=== PATIENT | female | born 2000 | race African-American/Black ===

== ENCOUNTER 2018-03-03 01:13 | Observation (INO) ==
[2018-03-03] MEDS ORDERED: LIDOCAINE 1%/EPI INJ 20 ML VIAL INFILTRAT STA (01:50)
[2018-03-03 02:46] LABS: Basophils % 0.5 % (0.0-0.8); Eosinophils # 0.3 10*3/uL (0.0-0.87); Eosinophils % 3.6 % (0.00-10.9); Hematocrit 28.9 VOL% (35.7-47.0); Hemoglobin 9.6 GM/DL (12.0-16.0); Immature Granulocytes % 0.5 %; Immature Granulocytes Absolute 0.04 #; Lymphocytes # 2.3 10*3/uL (1.4-4.0); Lymphocytes % 27.4 % (21.3-54.2); Mean Corpuscular HGB Conc 33.2 GM/DL (32-36); Mean Corpuscular Hemoglobin 21 PG (27-34); Mean Corpuscular Volume 63.1 FL (87-102); Monocytes # 0.7 10*3/uL (0.11-0.8); Neutrophils # 5.1 10*3/uL (1.4-7.4); Platelet Count 241 T/CUMM (130-400); Red Blood Count 4.58 MC/CUMM (3.8-5.5); Red Cell Distribution Width 18.8 % (9.3-17.3); White Blood Count 8.4 T/CUMM (4-12)
[2018-03-03 03:14] LABS: Albumin 3.2 G/DL (3.4-5.0); Bilirubin,Total 0.5 MG/DL (0.2-1.0); Calcium 8.8 MG/DL (8.5-10.1); Osmolality,Calculated 273.5 MOS/KG (273-304); Potassium 3.7 MMOL/L (3.5-5.1); Total Protein 7.7 G/DL (6.4-8.3)
[2018-03-03] MEDS ORDERED: HYDROmorphone 2 MG/1 ML VIAL IV PRN (06:59)
[2018-03-03] MEDS ORDERED: ACETAMINOPHEN 325 MG TABLET PO PRN (06:59)
[2018-03-03] MEDS ORDERED: ONDANSETRON 4 MG/2 ML VIAL IV PRN (06:59)
[2018-03-03] MEDS: LACTATED RINGERS 1,000 ML IV SCH ×2 (08:06→14:33)
[2018-03-03] MEDS: PANTOPRAZOLE 40 MG TABLET PO SCH (08:08)
[2018-03-03] MEDS: CLINDAMYCIN INJ 900 MG in PREMIX 1 EACH IV SCH ×2 (09:17→16:27)
[2018-03-03] MEDS ORDERED: PROPOFOL 200 MG/20 ML VIAL IV ONE (13:15)
[2018-03-03] MEDS ORDERED: SEVOFLURANE 1 UNIT/15 MINUTE INH ONE (13:16)
[2018-03-03] MEDS ORDERED: MIDAZOLAM 2 MG/2 ML VIAL ONE (13:16)
[2018-03-03] MEDS ORDERED: fentaNYL 100 MCG/2 ML VIAL ONE (13:17)
[2018-03-03] MEDS ORDERED: ONDANSETRON 4 MG/2 ML VIAL ONE (13:17)
[2018-03-04] MEDS: LACTATED RINGERS 1,000 ML IV SCH (00:31)
[2018-03-04] MEDS: CLINDAMYCIN INJ 900 MG in PREMIX 1 EACH IV SCH (00:31)
[2018-03-04 07:46] VITALS: BP 130/75
[2018-03-04] MEDS: PANTOPRAZOLE 40 MG TABLET PO SCH (08:35)
[2018-03-04] MEDS ORDERED: ENOXAPARIN 40 MG/0.4 ML SYRINGE SUBCUT SCH (09:00)
[2018-03-04] MEDS ORDERED: SULFAMETHOX/TRIMETHOPRIM 800-160 MG TABLET PO SCH (09:00)
== END 2018-03-04 11:10 | disposition home or self-care (01) ==
LOC: N.ED 01:13 → N.EDINP 01:13 → N.2E 07:34
PROVIDERS: ADMIT Surgery; ATTEND Surgery

== ENCOUNTER 2019-04-12 15:10 | Inpatient (IN) ==
[2019-04-12] MEDS ORDERED: ONDANSETRON 4 MG/2 ML VIAL IV PRN (15:27)
[2019-04-12] MEDS ORDERED: MEPERIDINE 50 MG/1 ML VIAL IV PRN (15:27)
[2019-04-12] MEDS ORDERED: DINOPROSTONE VAG GEL 10 MG SYRINGE VAG ONE (15:31)
[2019-04-12] MEDS: LACTATED RINGERS 1,000 ML IV SCH (16:01)
[2019-04-12 16:26] LABS: Basophils % 0.4 % (0.0-0.8); Eosinophils # 0.1 10*3/uL (0.0-0.87); Eosinophils % 0.8 % (0.00-10.9); Hematocrit 26.1 VOL% (35.7-47.0); Hemoglobin 8.4 GM/DL (12.0-16.0); Immature Granulocytes % 0.8 %; Immature Granulocytes Absolute 0.07 #; Lymphocytes # 1.2 10*3/uL (1.4-4.0); Lymphocytes % 13.2 % (21.3-54.2); Mean Corpuscular HGB Conc 32.2 GM/DL (32-36); Mean Corpuscular Volume 80.6 FL (87-102); Mean Platelet Volume 12.6 FL (9.6-12.0); NRBC # 0.04 10*3/uL; Neutrophils % 78.8 % (38.7-73.9); Platelet Count 118 T/CUMM (130-400); Red Blood Count 3.24 MC/CUMM (3.8-5.5); Red Cell Distribution Width 16.1 % (9.3-17.3); White Blood Count 9.3 T/CUMM (4-12)
[2019-04-12 16:29] LABS: Albumin 2.9 G/DL (3.4-5.0); Bilirubin,Total 1.2 MG/DL (0.2-1.0); Osmolality,Calculated 269.7 MOS/KG (273-304); Total Protein 6.9 G/DL (6.4-8.3); Uric Acid 4.1 MG/DL (2.6-6.0)
[2019-04-12] MEDS ORDERED: hydrALAZINE 20 MG/1 ML VIAL IV ONE (18:10)
[2019-04-12] MEDS ORDERED: PROMETHAZINE 25 MG/1 ML VIAL IM ONE (18:18)
[2019-04-12] MEDS ORDERED: MEPERIDINE 25 MG/1 ML VIAL IM ONE (18:18)
[2019-04-13] MEDS: LACTATED RINGERS 1,000 ML IV SCH ×2 (00:30→11:31)
[2019-04-13] MEDS: OXYTOCIN/LR 20 UNIT/1,000 ML BAG IV SCH ×2 (02:05→17:50)
[2019-04-13] MEDS: BUTORPHANOL 2 MG/ML VIAL IV PRN ×2 (03:42→07:03)
[2019-04-13] MEDS ORDERED: ePHEDrine 50 MG/ML AMP IV PRN (08:43)
[2019-04-13] MEDS ORDERED: diphenhydrAMINE 50 MG/1 ML VIAL IV PRN ×2 (08:43)
[2019-04-13] MEDS ORDERED: CITRIC ACID/SODIUM CITRATE 30 ML UDCUP PO ONE (08:43)
[2019-04-13] MEDS ORDERED: FAMOTIDINE 20 MG/2 ML VIAL IV ONE (08:43)
[2019-04-13] MEDS ORDERED: PROMETHAZINE 25 MG/1 ML VIAL IM ONE (08:43)
[2019-04-13] MEDS ORDERED: LACTATED RINGERS 1,000 ML IV ONE (08:43)
[2019-04-13] MEDS ORDERED: hydrOXYzine HCL 25 MG/1 ML VIAL IM PRN (08:43)
[2019-04-13] MEDS ORDERED: NALOXONE 0.4 MG/ML VIAL IV PRN (08:43)
[2019-04-13] MEDS ORDERED: fentaNYL 2 MCG/ROPIV 0.2% EPID 100 ML EPIDURAL ONE (08:52)
[2019-04-13] MEDS ORDERED: fentaNYL 2 MCG/ROPIV 0.2% EPID 100 ML EPIDURAL SCH (09:00)
[2019-04-13 10:52] LABS: Amorphous Crystals,Urine Occasional /HPF (Few); Apearance,Urine CLEAR (Clear); Bacteria,Urine Occasional /HPF (Few); Bilirubin,Urine Negative (Negative); Blood, Urine Negative (Negative); Glucose,Urine (UA) Negative (Negative); Ketones,Urine Negative (Negative); Mucus,Urine Few /LPF (Occasional); Nitrite,Urine Negative (Negative); Protein,Urine Negative; RBC,Urine 1 /HPF (0-4); Squamous Epithelial Cell,Urine Occasional /HPF (0-10); Urine Color Amber (Yellow); Urine Specific Gravity 1.008 (1.001-1.035); WBC,Urine 22 /HPF (0-6)
[2019-04-13] MEDS ORDERED: miSOPROStol 200 MCG TABLET ONE (15:40)
[2019-04-13] MEDS ORDERED: TRANEXAMIC ACID 1,000 MG/10 ML VIAL ONE (15:40)
[2019-04-13] MEDS ORDERED: CARBOPROST TROMETHAMINE 250 MCG/ML AMP IM ONE (15:41)
[2019-04-13] MEDS ORDERED: METHYLERGONOVINE 0.2 MG/1 ML AMP ONE (15:41)
[2019-04-13 17:02] LABS: Cord Venous Blood HCO3 23.3 MMOL/L; Cord Venous Blood PCO2 41.6 MMHG; Cord Venous Blood PO2 28.9
[2019-04-13] MEDS ORDERED: IBUPROFEN 800 MG TABLET PO ONE (19:40)
[2019-04-13] MEDS ORDERED: MEASLES/MUMPS/RUBELLA VACCINE 0.5 ML VIAL SUBCUT ONE (21:05)
[2019-04-13] MEDS ORDERED: BISACODYL 10 MG SUPP RECTAL PRN (21:05)
[2019-04-13] MEDS ORDERED: DIPH/TET/ACEL PERT BOOSTER VACCINE 0.5 ML VIAL IM ONE (21:05)
[2019-04-13] MEDS ORDERED: ACETAMINOPHEN 325 MG TABLET PO PRN (21:05)
[2019-04-13] MEDS ORDERED: RHO(D) IMMUNE GLOBULIN 300 MCG SYRINGE IM ONE (21:05)
[2019-04-13] MEDS ORDERED: HYDROCORTISONE 2.5% RECTAL CREAM 30 GM TUBE TOP PRN (21:05)
[2019-04-13] MEDS ORDERED: BENZOCAINE 20%/MENTHOL 0.5% SPRAY 56 GM CAN TOP PRN (21:05)
[2019-04-13] MEDS ORDERED: oxyCODONE/ACETAMINOPHEN 5-325 MG TABLET PO PRN (21:05)
[2019-04-13] MEDS ORDERED: LANOLIN 50% CREAM 0.3 OZ TUBE TOP PRN (21:05)
[2019-04-13] MEDS ORDERED: WITCH HAZEL PADS 100/JAR TOP PRN (21:05)
[2019-04-13 21:28] LABS: Hematocrit 23.9 VOL% (35.7-47.0)
[2019-04-14] MEDS: DOCUSATE SODIUM 100 MG CAPSULE PO SCH ×3 (00:58→21:21)
[2019-04-14 06:52] LABS: Basophils % 0.2 % (0.0-0.8); Eosinophils # 0.1 10*3/uL (0.0-0.87); Eosinophils % 0.6 % (0.00-10.9); Hematocrit 21.5 VOL% (35.7-47.0); Hemoglobin 7.2 GM/DL (12.0-16.0); Immature Granulocytes Absolute 0.09 #; Lymphocytes # 1.4 10*3/uL (1.4-4.0); Lymphocytes % 14.8 % (21.3-54.2); Mean Corpuscular HGB Conc 33.5 GM/DL (32-36); Mean Platelet Volume 12.5 FL (9.6-12.0); Monocytes % 6.2 % (1.7-12.7); Neutrophils % 77.2 % (38.7-73.9); Platelet Count 100 T/CUMM (130-400); Red Blood Count 2.72 MC/CUMM (3.8-5.5); Red Cell Distribution Width 15.9 % (9.3-17.3); White Blood Count 9.3 T/CUMM (4-12)
[2019-04-14 07:19] LABS: Hypochromasia 1+; Macrocytosis Slight; Ovalocytes Slight; Platelet Estimate Decreased; Polychromasia Slight
[2019-04-14] MEDS ORDERED: SODIUM CHLORIDE 0.9% 1,000 ML IV PRN (08:46)
[2019-04-14] MEDS ORDERED: FUROSEMIDE 20 MG/2 ML VIAL IV ONE (09:30)
[2019-04-14] MEDS: oxyCODONE/ACETAMINOPHEN 5-325 MG TABLET PO PRN ×2 (10:13→11:28)
[2019-04-14] MEDS: IBUPROFEN 800 MG TABLET PO PRN ×2 (11:28→21:21)
[2019-04-14 18:25] LABS: Hematocrit 28.4 VOL% (35.7-47.0); Hemoglobin 9.7 GM/DL (12.0-16.0)
[2019-04-14] MEDS ORDERED: RHO(D) IMMUNE GLOBULIN 300 MCG SYRINGE IM ONE (21:30)
[2019-04-15 11:36] VITALS: BP 122/80
== END 2019-04-15 15:00 | disposition home or self-care (01) | DRG 560 ==
LOC: N.LD 15:10 → N.OB 04-13 20:50
PROVIDERS: ADMIT Obstetrics & Gynecology; ATTEND Obstetrics & Gynecology

== ENCOUNTER 2022-06-24 19:42 | Inpatient (IN) ==
[2022-06-24] MEDS ORDERED: miSOPROStoL 200 MCG TABLET RECTAL PRN (19:51)
[2022-06-24] MEDS ORDERED: CARBOPROST TROMETHAMINE 250 MCG/ML AMP IM PRN (19:51)
[2022-06-24] MEDS ORDERED: METHYLERGONOVINE 0.2 MG/1 ML AMP IM PRN (19:51)
[2022-06-24] MEDS ORDERED: OXYTOCIN/LR 20 UNIT/1,000 ML BAG IV ONE (19:51)
[2022-06-24] MEDS ORDERED: TRANEXAMIC ACID 1,000 MG in SODIUM CHLORIDE 0.9% 100 ML IV PRN (19:51)
[2022-06-24] MEDS ORDERED: ONDANSETRON 4 MG/2 ML VIAL IV PRN (19:51)
[2022-06-24 20:34] LABS: Basophils % 0.2 % (0.0-0.8); Eosinophils # 0.1 10*3/uL (0.0-0.87); Eosinophils % 1.3 % (0.00-10.9); Hematocrit 26.9 VOL% (35.7-47.0); Hemoglobin 9.1 GM/DL (12.0-16.0); Immature Granulocytes % 0.4 %; Immature Granulocytes Absolute 0.03 #; Lymphocytes # 1.6 10*3/uL (1.4-4.0); Lymphocytes % 19.9 % (21.3-54.2); Mean Corpuscular HGB Conc 33.8 GM/DL (32-36); Mean Corpuscular Volume 73.9 FL (87-102); Mean Platelet Volume 11.3 FL (9.6-12.0); Monocytes # 0.4 10*3/uL (0.11-0.8); Monocytes % 5.3 % (1.7-12.7); Neutrophils % 72.9 % (38.7-73.9); Platelet Count 178 T/CUMM (130-400); Red Blood Count 3.64 MC/CUMM (3.8-5.5); Red Cell Distribution Width 15.8 % (9.3-17.3); White Blood Count 8.3 T/CUMM (4-12)
[2022-06-24 20:49] LABS: Albumin 2.8 G/DL (3.4-5.0); Bilirubin,Total 0.6 MG/DL (0.20-1.00); Calcium 8.9 MG/DL (8.5-10.1); Potassium 3.8 MMOL/L (3.5-5.1); Total Protein 6.9 G/DL (6.4-8.2)
[2022-06-24] MEDS ORDERED: DINOPROSTONE 10 MG VAG.INSERT VAG ONE (21:30)
[2022-06-24 21:48] LABS: Rubella Antibody IgG Result Reactive (NonReactive)
[2022-06-24] MEDS ORDERED: BUTORPHANOL 2 MG/ML VIAL IV PRN (23:02)
[2022-06-24] MEDS ORDERED: MEPERIDINE 25 MG/1 ML VIAL IV PRN (23:06)
[2022-06-25] MEDS ORDERED: BUTORPHANOL 1 MG/ML VIAL IV PRN (04:10)
[2022-06-25] MEDS: LACTATED RINGERS 1,000 ML IV SCH ×2 (04:18→10:13)
[2022-06-25] MEDS ORDERED: OXYTOCIN/LR 20 UNIT/1,000 ML BAG IV SCH (08:00)
[2022-06-25 11:48] LABS: Mucus,Urine Few /LPF (Occasional); RBC,Urine 1 /HPF (0-4); Squamous Epithelial Cell,Urine Occasional /HPF (0-10)
[2022-06-25 11:50] LABS: Bilirubin,Urine Negative (Negative); Blood, Urine Negative (Negative); Glucose,Urine (UA) Negative (Negative); Ketones,Urine Negative (Negative); Nitrite,Urine Negative (Negative); Protein,Urine Negative (Negative); Urine Appearance Clear (Clear); Urine Color Yellow (Yellow)
[2022-06-25 12:15] LABS: Barbiturates Screen,Urine Negative (Negative); Benzodiazepines Screen,Urine Negative (Negative); Cannabinoid Screen,Urine Negative (Negative); Opiate Screen,Urine Negative (Negative); Phencyclidine Screen,Urine Negative (Negative)
[2022-06-25] MEDS ORDERED: FAMOTIDINE 20 MG/2 ML VIAL IV ONE (14:24)
[2022-06-25] MEDS ORDERED: CITRIC ACID/SODIUM CITRATE 30 ML UDCUP PO ONE (14:24)
[2022-06-25] MEDS ORDERED: ceFAZolin 3,000 MG in SYRINGE 1 EACH IV ONE (14:24)
[2022-06-25] MEDS ORDERED: OXYTOCIN/LR 30 UNIT/1,000 ML BAG IV ONE (14:28)
[2022-06-25] MEDS ORDERED: OXYTOCIN 10 UNIT/ML VIAL IM ONE (14:28)
[2022-06-25] MEDS ORDERED: buprenorphine HCL 0.3 MG/ML VIAL ONE (14:56)
[2022-06-25] MEDS ORDERED: ONDANSETRON 4 MG/2 ML VIAL ONE (14:59)
[2022-06-25] MEDS ORDERED: PHENYLEPHRINE 1 MG/10 ML SYRINGE IV ONE (14:59)
[2022-06-25 15:53] LABS: Cord Venous Blood HCO3 24.9 MMOL/L; Cord Venous Blood PO2 27.2
[2022-06-25 15:55] LABS: Glucose,Urine (UA) Negative (Negative); Protein,Urine Negative (Negative); Urine Appearance Clear (Clear); Urine Color Yellow (Yellow)
[2022-06-25 15:56] LABS: Bilirubin,Urine Negative (Negative); Blood, Urine Negative (Negative); Ketones,Urine Negative (Negative); Nitrite,Urine Negative (Negative)
[2022-06-25 16:00] LABS: Mucus,Urine Occasional /LPF (Occasional); RBC,Urine 1 /HPF (0-4); Squamous Epithelial Cell,Urine Occasional /HPF (0-10)
[2022-06-25] MEDS ORDERED: ACETAMINOPHEN 325 MG TABLET PO PRN (16:14)
[2022-06-25] MEDS ORDERED: OXYTOCIN/LR 20 UNIT/1,000 ML BAG IV ONE (16:14)
[2022-06-25] MEDS ORDERED: ONDANSETRON 4 MG/2 ML VIAL IV PRN (16:14)
[2022-06-25] MEDS ORDERED: SIMETHICONE CHEW 80 MG TABLET PO PRN (16:14)
[2022-06-25] MEDS ORDERED: MAGNESIUM HYDROXIDE SUSP 30 ML UDCUP PO PRN (16:14)
[2022-06-25] MEDS ORDERED: RHO(D) IMMUNE GLOBULIN 300 MCG SYRINGE IM ONE (16:14)
[2022-06-25] MEDS ORDERED: LACTATED RINGERS 1,000 ML IV SCH (16:30)
[2022-06-25] MEDS ORDERED: ACETAMINOPHEN 500 MG TABLET PO SCH (16:30)
[2022-06-25] MEDS: KETOROLAC 30 MG/1 ML VIAL IV SCH (18:03)
[2022-06-25 21:49] LABS: Hematocrit 25.9 VOL% (35.7-47.0); Hemoglobin 8.8 GM/DL (12.0-16.0)
[2022-06-25] MEDS ORDERED: diphenhydrAMINE 50 MG/1 ML VIAL IV PRN (22:43)
[2022-06-25] MEDS: ceFAZolin 2,000 MG/50 ML DUPLEX IV SCH (23:25)
[2022-06-26] MEDS: DOCUSATE SODIUM 100 MG CAPSULE PO SCH ×2 (00:35→09:30)
[2022-06-26] MEDS ORDERED: ACETAMINOPHEN 325 MG/10.15 ML UDCUP PO SCH (01:00)
[2022-06-26] MEDS: ACETAMINOPHEN 325 MG/10.15 ML UDCUP PO SCH ×3 (01:02→13:39)
[2022-06-26] MEDS: KETOROLAC 30 MG/1 ML VIAL IV SCH ×3 (01:09→11:35)
[2022-06-26] MEDS: ceFAZolin 2,000 MG/50 ML DUPLEX IV SCH (06:33)
[2022-06-26 07:23] LABS: Basophils % 0.4 % (0.0-0.8); Eosinophils # 0.1 10*3/uL (0.0-0.87); Eosinophils % 0.8 % (0.00-10.9); Hematocrit 24.1 VOL% (35.7-47.0); Hemoglobin 8.1 GM/DL (12.0-16.0); Immature Granulocytes % 0.6 %; Immature Granulocytes Absolute 0.05 #; Lymphocytes # 1.2 10*3/uL (1.4-4.0); Lymphocytes % 15.4 % (21.3-54.2); Mean Corpuscular HGB Conc 33.6 GM/DL (32-36); Mean Corpuscular Volume 72.8 FL (87-102); Mean Platelet Volume 11.4 FL (9.6-12.0); Monocytes # 0.5 10*3/uL (0.11-0.8); Monocytes % 5.6 % (1.7-12.7); Neutrophils % 77.2 % (38.7-73.9); Platelet Count 136 T/CUMM (130-400); Red Blood Count 3.31 MC/CUMM (3.8-5.5); Red Cell Distribution Width 15.8 % (9.3-17.3)
[2022-06-26] MEDS: DOCUSATE SODIUM 100 MG/10 ML UDCUP PO SCH ×2 (09:45→20:39)
[2022-06-26] MEDS: MULTIVITAMIN (PRENATAL) TABLET PO SCH (09:45)
[2022-06-26] MEDS: FERROUS SULFATE 325 MG TABLET PO SCH ×2 (09:45→20:40)
[2022-06-26] MEDS: IBUPROFEN 800 MG TABLET PO PRN (19:37)
[2022-06-27] MEDS: IBUPROFEN 800 MG TABLET PO PRN (05:50)
[2022-06-27] MEDS: DOCUSATE SODIUM 100 MG/10 ML UDCUP PO SCH (08:28)
[2022-06-27] MEDS: MULTIVITAMIN (PRENATAL) TABLET PO SCH (08:29)
[2022-06-27] MEDS: FERROUS SULFATE 325 MG TABLET PO SCH (08:29)
[2022-06-27 11:52] VITALS: BP 121/67
[2022-06-27] MEDS ORDERED: IBUPROFEN 100 MG/5 ML UDCUP PO PRN (12:00)
== END 2022-06-27 13:52 | disposition home or self-care (01) | DRG 540 ==
LOC: N.LD 19:42 → N.OB 06-25 21:56
PROVIDERS: ADMIT Obstetrics & Gynecology; ATTEND Obstetrics & Gynecology
PROC: LDCSECT (ICD-10-PCS; 2022-06-25 14:00)